=== PATIENT | male | born 1980 | race Caucasian/White ===

== ENCOUNTER 2023-07-25 09:57 | Emergency (ER) | payer OTHER ==
--- OUTSIDE RECORDS SUMMARY | 2023-07-25 10:00 | XMS REPORT | Continuity of Care Document ---
Author Name Unknown Address [address] [facility] [address] thconnect Address [address] [facility] 1 495 [place] [address] Care Team Providers Care Vp Customer Development Name Role Phone BRIAN BAILEY Attending Clinician JOVANA Gracia Attending Clinician BRIAN Jackson Admitting Clinician JOVANA Gracia Admitting Clinician Alejandra card Payers Payer Name Policy Type Policy Number Effective Date Expirati on Date Source 30 [id number] Allergies, Adverse Reactions, Alerts Allergy Name Allergy Type Status Severity Reaction(s) Onset Date Inactive Date Treating Clinician Comments Source SULFA ANTIBIOT ICS Drug Allergy Active U Rash 11-07 01:55: 28 [facility] [place] Drug Allergy Active U Rash 11-07 01:55: 27 [facility]) Encounters Start Date/Time End Date/Time Encounter Type Admission Type Attending Clinicians Care Facility Care Department Encounter ID Source 2020-11-22 20:49:57 Outpatient [facility] [id number] [facility] 2020-08-31 14:20:00 2020-08-31 14:20:00 Outpatient 3 BRIAN BAILEY [facility] [id number] [facility] 2020-06-01 14:42:00 2020-06-01 14:42:00 Outpatient 3 BRIAN BAILEY [facility] [id number] [facility] 2020-02-14 08:02:00 2020-02-14 08:02:00 Outpatient 3 BRIAN BAILEY [facility] [id number] [facility] 2020-01-16 09:01:00 2020-01-16 09:01:00 Outpatient 3 BRIAN BAILEY [facility] [id number] [facility] 2019-12-12 11:49:00 2019-12-12 11:49:00 Outpatient 3 BRIAN BAILEY [facility] [id number] [facility] 2019-11-18 13:29:00 2019-11-18 13:29:00 Outpatient 3 BRIAN BAILEY [facility] O[facility] [id number] [facility] 2019-07-27 11:36:00 2019-07-27 11:36:00 Emergency [facility] [id number] [facility]) Results Test Description Test Time Test Comments Results Result Co mments Source [id number] 15:28:00* Test Item Value Reference Range Interpretation Comme nts SODIUM (test code = NA) 139 MMOL/L 137-145 K+ (test code = KSERUM) 4.0 MMOL/L 3.5-5.1 CHLORIDE (test code = CL) 104 MMOL/L 98-107 CO2 (test code = CO2) 29 MMOL/L 22-30 BUN (test code = BUN) 17 MG/DL 9-20 CREA (test code = CREA) 1.0 MG/DL 0.8-1.5 GLUCOSE (test code = GLUCOSE) 100 MG/DL 70-99 H Fasting glucos e normal <100 MG/DL- [employer] recommendation CALCIUM (test code = CABLOOD) 9.2 MG/DL 8.4-10.2 TOTPROT (test code = TOTPROT) 6.4 G/DL 6.3-8.2 ALBUMIN (test code = ALBSERUM) 4.0 G/DL 3.5-5.0 BILITOT (test code = BILITOT) 0.4 MG/DL 0.2-1.3 AST (test code = AST) 31 U/L 15-46 PHOSALK (test code = PHOSALK) 89 U/L 38-126 ALTV (test code = ALTV) 32 U/L 13-69 GFR (test code = GFR) 88 mL/min/1.73m2 A GFR of >90 mL/min/1.73m2 is considered normal. The GFR calculation on patients over 70 years of age is not validated by the correspondence transcriber and may not represent the patients true renal function. [id number] 15:44:00* Test Item Value Reference Range Interpretation Comme nts SODIUM (test code = NA) 136 MMOL/L 137-145 L K+ (test code = KSERUM) 4.1 MMOL/L 3.5-5.1 CHLORIDE (test code = CL) 102 MMOL/L 98-107 CO2 (test code = CO2) 29 MMOL/L 22-30 BUN (test code = BUN) 18 MG/DL 9-20 CREA (test code = CREA) 1.0 MG/DL 0.8-1.5 GLUCOSE (test code = GLUCOSE) 117 MG/DL 70-99 H Fasting glucos e normal <100 MG/DL- [employer] recommendation CALCIUM (test code = CABLOOD) 9.4 MG/DL 8.4-10.2 TOTPROT (test code = TOTPROT) 6.7 G/DL 6.3-8.2 ALBUMIN (test code = ALBSERUM) 4.2 G/DL 3.5-5.0 BILITOT (test code = BILITOT) 0.4 MG/DL 0.2-1.3 AST (test code = AST) 34 U/L 15-46 PHOSALK (test code = PHOSALK) 85 U/L 38-126 ALTV (test code = ALTV) 40 U/L 13-69 GFR (test code = GFR) 88 mL/min/1.73m2 A GFR of >90 mL/min/1.73m2 is considered normal. The GFR calculation on patients over 70 years of age is not validated by the correspondence transcriber and may not represent the patients true renal function. [id number] 15:19:00* Test Item Value Reference Range Interpretation Comme nts WBC (test code = WBC) 4.8 K/UL 3.5-10.9 RBC (test code = RBC) 4.91 M/UL 4.3-5.7 HGB (test code = HGB) 15.4 G/DL 13.0-17.9 HCT (test code = HCT) 46.1 % 38-52 MCV (test code = MCV) 93.9 FL 80-98 MCH (test code = MCH) 31.4 PG 28-32 MCHC (test code = MCHC) 33.4 G/DL 32.5-36.5 RDW (test code = RDW) 12.6 % 11.5-14.5 PLT (test code = PLT) 204 K/UL 150-450 MPV (test code = MPV) 10.0 FL 7.4-10.4 MANDIFF (test code = MANDIFF) NO SCAN (test code = SCAN) NO NEUT% (test code = NEUT%) 45.6 % 40-75 LYMPH% (test code = LYMPH%) 42.4 % 24-44 MONO% (test code = MONO%) 8.1 % 0-13 EOS% (test code = EOS%) 3.1 % 0-4 BASO % (test code = BASO%) 0.6 % 0-2 IG (test code = IG) 0 % 0-1 IG% (test code = IG%) 0.2 % 0-1 IG% = Metamyeloc ytes, Myelocytes, and Promyelocytes. (Immature neutrophils not including "bands".) > 3% IG indicates risk of sepsis NRBC% (test code = NRBC%) 0 /100 WBC ABS NEUT (test code = NEUT) 2.2 K/UL 1.2-7.2 TESTOSTERONE [id number] 11:25:00* Test Item Value Reference Range Interpretation Comme nts TESTOSTERONE, SERUM (test code = TESTOSTO) >2160 Normal Ma les (aged 20-49 yrs) 132-813 ng/dL Normal Males (aged >50 yrs) 71.8-623 ng/dL Females with normal menstrual cycles 5.71-77 ng/dL TESTOSTERONE [id number] 10:30:00* Test Item Value Reference Range Interpretation Comme nts TESTOSTERONE, SERUM (test code = TESTOSTO) 1090 Normal Ma les (aged 20-49 yrs) 132-813 ng/dL Normal Males (aged >50 yrs) 71.8-623 ng/dL Females with normal menstrual cycles 5.71-77 ng/dL TESTOSTERONE [id number] 13:34:00* Test Item Value Reference Range Interpretation Comme nts TESTOSTERONE, SERUM (test code = TESTOSTO) 348 Normal Ma les (aged 20-49 yrs) 132-813 ng/dL Normal Males (aged >50 yrs) 71.8-623 ng/dL Females with normal menstrual cycles 5.71-77 ng/dL [id number] 15:13:00* Test Item Value Reference Range Interpretation Comme nts SODIUM (test code = NA) 140 MMOL/L 137-145 K+ (test code = KSERUM) 4.0 MMOL/L 3.5-5.1 CHLORIDE (test code = CL) 99 MMOL/L 98-107 CO2 (test code = CO2) 34 MMOL/L 22-30 H BUN (test code = BUN) 22 MG/DL 9-20 H CREA (test code = CREA) 1.1 MG/DL 0.8-1.5 GLUCOSE (test code = GLUCOSE) 78 MG/DL 70-99 Fasting glucos e normal <100 MG/DL- [employer] recommendation CALCIUM (test code = CABLOOD) 9.8 MG/DL 8.4-10.2 TOTPROT (test code = TOTPROT) 6.8 G/DL 6.3-8.2 ALBUMIN (test code = ALBSERUM) 4.5 G/DL 3.5-5.0 BILITOT (test code = BILITOT) 0.3 MG/DL 0.2-1.3 AST (test code = AST) 34 U/L 15-46 PHOSALK (test code = PHOSALK) 83 U/L 38-126 ALTV (test code = ALTV) 30 U/L 13-69 GFR (test code = GFR) 79 mL/min/1.73m2 A GFR of >90 mL/min/1.73m2 is considered normal. TESTOSTERONE [id number] 14:50:00* Test Item Value Reference Range Interpretation Comme nts TESTOSTERONE, SERUM (test code = TESTOSTO) 2110 Normal Ma les (aged 20-49 yrs) 132-813 ng/dL Normal Males (aged >50 yrs) 71.8-623 ng/dL Females with normal menstrual cycles 5.71-77 ng/dL [id number] 13:47:00* Test Item Value Reference Range Interpretation Comme nts WBC (test code = WBC) 6.4 K/UL 3.5-10.9 RBC (test code = RBC) 5.34 M/UL 4.3-5.7 HGB (test code = HGB) 16.2 G/DL 13.0-17.9 HCT (test code = HCT) 49.4 % 38-52 MCV (test code = MCV) 92.5 FL 80-98 MCH (test code = MCH) 30.3 PG 28-32 MCHC (test code = MCHC) 32.8 G/DL 32.5-36.5 RDW (test code = RDW) 12.2 % 11.5-14.5 PLT (test code = PLT) 189 K/UL 150-450 MPV (test code = MPV) 9.5 FL 7.4-10.4 MANDIFF (test code = MANDIFF) NO SCAN (test code = SCAN) NO NEUT% (test code = NEUT%) 51.6 % 40-75 LYMPH% (test code = LYMPH%) 37.0 % 24-44 MONO% (test code = MONO%) 7.9 % 0-13 EOS% (test code = EOS%) 3.0 % 0-4 BASO % (test code = BASO%) 0.3 % 0-2 IG (test code = IG) 0 % 0-1 IG% (test code = IG%) 0.2 % 0-1 IG% = Metamyeloc ytes, Myelocytes, and Promyelocytes. (Immature neutrophils not including "bands".) > 3% IG indicates risk of sepsis NRBC% (test code = NRBC%) 0 /100 WBC ABS NEUT (test code = NEUT) 3.3 K/UL 1.2-7.2
[2023-07-25] MEDS ORDERED: dexAMETHasone 10 MG/ML VIAL ONE (10:54)
[2023-07-25] MEDS ORDERED: NA CHLORIDE 0.9% 1,000 ML ONE (10:55)
[2023-07-25 11:03] LABS: Absolute Eosinophils 0.2 K/uL (0-0.5); Absolute Lymphocytes (CBC) 1.5 K/uL (0.7-4.9); Absolute Monocytes 0.4 K/uL (0.1-1.3); Absolute Neutrophil 5.3 K/uL (1.8-8.0); Basophils % 0.3 % (0-1.3); Eosinophils % 2.5 % (0-4.4); Hematocrit 39.9 % (39.6-49.0); Hemoglobin 13.6 g/dL (13.6-17.9); Lymphocytes % 19.9 % (15.3-44.8); MCH 31.3 pg (27.0-35.0); MPV 7.7 fL (7.6-11.3); Monocytes % 5.2 % (3.3-12.3); Neutrophils % 72.1 % (41.7-73.7); Platelets 226 thou/uL (152-406); RBC Red Blood Cell Count 4.34 M/uL (4.33-5.43); Red Cell Distribution Width 12.8 % (12.1-15.2)
[2023-07-25 11:13] LABS: SARS-CoV-2 Antigen CONTROL BLUE LINE VIS/BG OK; SARS-CoV-2 Antigen Rapid Res Negative (Negative)
[2023-07-25 11:15] LABS: Anion Gap 7.9 mEq/L (5.0-15.0); Potassium 3.9 mEq/L (3.5-5.1)
--- NOTE | 2023-07-25 12:11 | RAD REPORT ---
EXAM DESCRIPTION: CT - Soft Tissue Neck W/Contr - 07/25/2023 11:52 am CLINICAL HISTORY: Neck pain with sore throat. Difficulty swallowing COMPARISON: None. TECHNIQUE: Computed axial tomography of the neck was obtained. 50 cc Isovue 300 was administered in travenously. Coronal and sagittal reconstruction was performed. All CT scans are performed using dose optimization technique as appropriate and may include automated exposure control or mA/KV adjustment according to patient size. FINDINGS: 12 millimeter stone within Limestone's duct Right submandibular gland is enlarged with increased density Left submandibular gland unremarkable The pharynx, tongue base, larynx and subglottic trachea appear unremarkable No significant lymphadenopathy is seen No fluid within the sinuses/mastoids IMPRESSION: 12 millimeter stone within Chela's duct results in right submandibular sialadenitis
--- NOTE | 2023-07-25 12:15 | ER ---
Nurse's Notes [facility] Name: Marine De La Cruz Age: 42 yrs Sex: Male : 1980 Arrival Date: 07/25/2023 Time: 09:57 Bed 6 Private MD: Diagnosis: Submandibular Sialadenitis Presentation: 07/24 10:33 Chief complaint: Patient states: Swelling under tongue and to R side of throat x 3-4 ph days, also reports difficulty swallowing, denies fever, N/V. Coronavirus screen: Vaccine status: Patient reports being unvaccinated. Ebola Screen: No symptoms or risks identified at this time. Initial Sepsis Screen: Does the patient meet any 2 criteria? No. Patient's initial sepsis screen is negative. Does the patient have a suspected source of infection? No. Patient's initial sepsis screen is negative. Risk Assessment: Do you want to hurt yourself or someone else? Patient reports no desire to harm self or others. Onset of symptoms was July 25, 2023. 10:33 Method Of Arrival: Ambulatory ph 10:33 Acuity: BIANKA 3 ph Historical: - Allergies: 10:34 PENICILLINS; ph 10:34 Sulfa (Sulfonamide Antibiotics); ph - PMHx: 10:34 Hypercholesterolemia; ph - Immunization history:: Adult Immunizations unknown. - Infectious Disease History:: Denies. - Social history:: Smoking status: Patient denies any tobacco usage or history of. Screenin:17 [facility] ED Fall Risk Assessment (Adult) History of falling in the last 3 months, as6 including since admission No falls in past 3 months (0 pts) Confusion or Disorientation No (0 pts) Intoxicated or Sedated No (0 pts) Impaired Gait No (0 pts) Mobility Assist Device Used No (0 pt) Altered Elimination No (0 pt) Score/Fall Risk Level 0 - 2 = Low Risk Oriented to surroundings, Maintained a safe environment, Educated pt \T\ family on fall prevention, incl call for assistance when getting out of bed, Assessed \T\ reinforced patient's understanding of fall precautions. Abuse screen: Denies threats or abuse. Denies injuries from another. Nutritional screening: No deficits noted. Tuberculosis screening: No symptoms or risk factors identified. Assessment: 11:18 General: Appears in no apparent distress. Behavior is calm, cooperative. Pain: as6 Complains of pain in neck. Respiratory: Airway is patent Trachea midline Respiratory effort is even, unlabored, Respiratory pattern is regular, symmetrical. EENT: Derm: nodular noted to right side of neck. Vital Signs: 10:33 BP 136 / 92; Pulse 67; Resp 18; Temp 97.7; Pulse Ox 100% on R/A; Weight 80.74 kg; ph Height 6 ft. 0 in. ; 11:16 BP 111 / 73; Pulse 49; Resp 16; Pulse Ox 100% ; as6 12:25 BP 114 / 72; Pulse 50; Resp 16; Pulse Ox 100% ; as6 10:33 Body Mass Index 24.14 (80.74 kg, 182.88 cm) ph ED Course: 09:59 Patient arrived in ED. mr 09:59 Taty Jefferson FNP is PHCP. jh7 09:59 Sabino Leyva MD is Attending Physician. jh7 10:27 Miguelito Hassan, LALITA is Primary Nurse. as6 10:34 Triage completed. ph 10:35 Arm band placed on Patient placed in an exam room. ph 10:54 Strep Sent. as6 10:54 Flu Sent. as6 10:54 SARS RAPID Sent. as6 10:54 CBC with Diff Sent. as6 10:54 BMP Sent. as6 10:55 Inserted saline lock: 20 gauge in left antecubital area, using aseptic technique. Blood jr12 collected. 11:16 Bed in low position. Call light in reach. Client placed on continuous cardiac and pulse as6 oximetry monitoring. NIBP monitoring applied. Warm blanket given. 11:54 CT Soft Tissue Neck W/contr In Process Unspecified. EDMS 12:25 Provided Education on: abx rx. as6 12:25 No provider procedures requiring assistance completed. IV discontinued, intact, as6 bleeding controlled, No redness/swelling at site. Pressure dressing applied. Administered Medications: 10:10 Not Given (Physician Discretion): dexamethasone 10 mg IM once [facility] 10:58 Drug: NS 0.9% IV 1000 ml IV at 1 bolus Per protocol; 1000 mL bolus Route: IV; Rate: 1 as6 bolus; Site: left antecubital; 12:26 Follow up: Response: No adverse reaction; IV Status: Completed infusion; IV Intake: as6 1000ml 10:58 Drug: Decadron - Dexamethasone IVP 10 mg IVP once Route: IVP; Site: left antecubital; as6 12:26 Follow up: Response: No adverse reaction as6 Medication: 11:17 VIS not applicable for this client. as6 Intake: 12:26 IV: 1000ml; Total: 1000ml. as6 Outcome: 12:15 Discharge ordered by . jh7 12:26 Discharged to home ambulatory, as6 12:26 Condition: stable 12:26 Discharge instructions given to patient, Instructed on discharge instructions, follow up and referral plans. medication usage, Demonstrated understanding of instructions, follow-up care, medications, Prescriptions given X 2, 12:26 Patient left the ED. as6 Signatures: Dispatcher [employer] EDMS Xi Cain, Reg Reg mr Ambreen Story, RN RN Miguelito Jean-Baptiste, LALITA RN as6 Taty Jefferson, PEER COUNSELOR PEER COUNSELOR jh7 Noris Brewer 12
--- NOTE | 2023-07-25 12:15 | EDPHYS ---
Physician Documentation [facility] Name: Marine De La Cruz Age: 42 yrs Sex: Male : 1980 Arrival Date: 07/25/2023 Time: 09:57 Bed 6 Private MD: ED Physician Sabino Leyva HPI: 07/24 09:59 This 42 yrs old Male presents to ER via Unassigned with complaints of Sore Throat. jh7 09:59 42-year-old male presents to the ER complaining of sore throat, neck swelling, and jh7 difficulty swallowing for the past 3 days. He reports that he is barely able to swallow liquids. He states that he has a history of high cholesterol and had a physical and labs done over a week ago. He reports that he is now having difficulty talking due to pain and swelling under his tongue on the floor of the mouth. Denies fever, inability to move neck, cough, runny nose, chest pain, shortness of breath, or any other symptoms at this time.. Historical: - Allergies: 10:34 PENICILLINS; ph 10:34 Sulfa (Sulfonamide Antibiotics); ph - PMHx: 10:34 Hypercholesterolemia; ph - Immunization history:: Adult Immunizations unknown. - Infectious Disease History:: Denies. - Social history:: Smoking status: Patient denies any tobacco usage or history of. ROS: 09:59 Constitutional: Per HPI jh7 Exam: 09:59 Constitutional: This is a well developed, well nourished patient who is awake, alert, jh7 and in no acute distress. Cardiovascular: Regular rate and rhythm with a normal S1 and S2. No gallops, murmurs, or rubs. Normal PMI, no JVD. No pulse deficits. Respiratory: Lungs have equal breath sounds bilaterally, clear to auscultation and percussion. No rales, rhonchi or wheezes noted. No increased work of breathing, no retractions or nasal flaring. Abdomen/GI: Soft, non-tender, with normal bowel sounds. No distension or tympany. No guarding or rebound. No evidence of tenderness throughout. Back: No spinal tenderness. No costovertebral tenderness. Full range of motion. Skin: Warm, dry with normal turgor. Normal color with no rashes, no lesions, and no evidence of cellulitis. MS/ Extremity: Pulses equal, no cyanosis. Neurovascular intact. Full, normal range of motion. Neuro: Awake and alert, GCS 15, oriented to person, place, time, and situation. Motor strength 5/5 in all extremities. Sensory grossly intact. Normal gait. 09:59 ENT: Dental exam: cellulitis, that is mild, dental caries, that is moderate, Mild erythema with swelling and a few scattered vesicles noted to the floor of the mouth, 09:59 Neck: External neck: swelling, that is mild, of the right submandibular area, tenderness, that is mild, of the right submandibular area, ROM/movement: is normal, Lymph nodes: lymphadenopathy is appreciated, submandibular nodes, Vital Signs: 10:33 BP 136 / 92; Pulse 67; Resp 18; Temp 97.7; Pulse Ox 100% on R/A; Weight 80.74 kg; ph Height 6 ft. 0 in. ; 11:16 BP 111 / 73; Pulse 49; Resp 16; Pulse Ox 100% ; as6 12:25 BP 114 / 72; Pulse 50; Resp 16; Pulse Ox 100% ; as6 10:33 Body Mass Index 24.14 (80.74 kg, 182.88 cm) ph MDM: 09:59 Patient medically screened. [facility] 12:15 Differential diagnosis: Channing's angina, strep pharyngitis, retropharyngeal abscess, jh7 viral pharyngitis, salivary gland infection, salivary gland stone. Data reviewed: vital signs, nurses notes, lab test result(s), radiologic studies, CT scan. I considered the following discharge prescriptions or medication management in the emergency department Medications were administered in the Emergency Department. See MAR. Counseling: I had a detailed discussion with the patient and/or guardian regarding the historical points, exam findings, and any diagnostic results supporting the discharge/admit diagnosis, the need for outpatient follow up, an ENT specialist, to return to the emergency department if symptoms worsen or persist or if there are any questions or concerns that arise at home. Response to treatment: the patient's symptoms have markedly improved after treatment. Special discussion: Advise sucking hard sugar-free candies, warm compresses, and NSAIDs. Start antibiotics if symptoms or not improving within the next 48 hours.. 07/24 10:09 Order name: Strep [facility] 07/24 10:09 Order name: Flu; Complete Time: 11:20 [facility] 07/24 10:09 Order name: SARS RAPID; Complete Time: 11:20 [facility] 07/24 10:11 Order name: CBC with Diff; Complete Time: 11:20 [facility] 07/24 10:11 Order name: BMP; Complete Time: 11:20 [facility] 07/24 11:17 Order name: Throat Culture [facility] 07/24 10:11 Order name: CT Soft Tissue Neck W/contr; Complete Time: 12:12 [facility] 07/24 10:10 Order name: IV Start; Complete Time: 10:54 [facility] Administered Medications: 10:10 Not Given (Physician Discretion): dexamethasone 10 mg IM once [facility] 10:58 Drug: NS 0.9% IV 1000 ml IV at 1 bolus Per protocol; 1000 mL bolus Route: IV; Rate: 1 as6 bolus; Site: left antecubital; 12:26 Follow up: Response: No adverse reaction; IV Status: Completed infusion; IV Intake: as6 1000ml 10:58 Drug: Decadron - Dexamethasone IVP 10 mg IVP once Route: IVP; Site: left antecubital; as6 12:26 Follow up: Response: No adverse reaction as6 Disposition Summary: 07/25/23 12:15 Discharge Ordered Notes: Location: Home [facility] Problem: new [facility] Symptoms: have improved [facility] Condition: Stable [facility] Diagnosis - Submandibular Sialadenitis [facility] Followup: [facility] - With: Private Physician - When: 2 - 3 days - Reason: Recheck today's complaints Discharge Instructions: - Discharge Summary Sheet [facility] - Salivary Gland Infection [facility] - Salivary Stone [facility] Forms: - Medication Reconciliation Form [facility] - Antibiotic Education [facility] - Patient Portal Instructions [facility] - Leadership Thank You Letter [facility] Prescriptions: - Clindamycin HCl 300 mg Oral Capsule - take 1 capsule ORAL route every 6 hours for 10 days; 40 capsule; Refills: 0, [facility] Product Selection Permitted - Ibuprofen 800 mg Oral Tablet - take 1 tablet ORAL route every 8 hours As needed take with food; 30 tablet; [facility] Refills: 0, Product Selection Permitted Addendum: 07/28/2023 14:10 I was immediately available for consultation during this patient's visit. I did not e c2 personally see the patient or discuss the patient with the SNEHA. . Signatures: Dispatcher [employer] EDMS Ambreen Story, RN RN ph Miguelito Hassan, LALITA RN as6 Taty Jefferson, POOL FINISHER POOL FINISHER jh7 Sabino Leyva MD MD ec2 Corrections: (The following items were deleted from the chart) 07/24 10:11 10:11 CBC+H.LAB.BRZ ordered. EDMS EDMS 10: 10:11 BASIC METABOLIC PANEL+C.LAB.BRZ ordered. EDMS EDMS 10: 10:11 Soft Tissue Neck W/Contr+CT.RAD.BRZ ordered. EDMS EDMS
[2023-07-25 12:35] VITALS: BP 114/72; TEMP 97.7; O2SAT 100
== END 2023-07-25 12:26 | disposition home or self-care (01) ==
LOC: ER 09:57
DX: K11.20 Sialoadenitis, unspecified (principal); Z11.52 Encounter for screening for COVID-19
CPT/HCPCS: 96361; 87070; 85025; 80048; 36415; 87081; 87804 ×2; 70491; 96374; 99284; 87811; Q9967; J1100; J7030

== ENCOUNTER 2024-02-18 19:27 | Emergency (ER) | payer BC, OTHER ==
--- OUTSIDE RECORDS SUMMARY | 2024-02-18 19:32 | XMS REPORT | Continuity of Care Document ---
Author Name Unknown Address [address] [facility] [address] [facility] Address [address] [facility] 1 [address] [place] [address] Care Team Providers Care Slat Basket Maker Name Role Phone BRIAN BAILEY Attending Clinician JOVANA Gracia Attending Clinician BRIAN Jackson Admitting Clinician JOVANA Gracia Admitting Clinician Alejandra card Payers Payer Name Policy Type Policy Number Effective Date Expirati on Date Source 30 [id number] Allergies, Adverse Reactions, Alerts Allergy Name Allergy Type Status Severity Reaction(s) Onset Date Inactive Date Treating Clinician Comments Source SULFA ANTIBIOT ICS Drug Allergy Active U Rash 11-07 01:55: [facility] [place] Drug Allergy Active U Rash 11-07 01:55: 27 [facility] Encounters Start Date/Time End Date/Time Encounter Type Admission Type Attending Clinicians Care Facility Care Department Encounter ID Source 2020-11-22 20:49:57 Outpatient [facility] [id number] [facility] 2020-08-31 14:20:00 2020-08-31 14:20:00 Outpatient 3 BRIAN BAILEY [facility] [id number] [facility]) 2020-06-01 14:42:00 2020-06-01 14:42:00 Outpatient 3 BRIAN BAILEY [facility] [id number] [facility] 2020-02-14 08:02:00 2020-02-14 08:02:00 Outpatient 3 BRIAN BAILEY [facility] [id number] [facility] 2020-01-16 09:01:00 2020-01-16 09:01:00 Outpatient 3 BRIAN BAILEY [facility] [id number] [facility] 2019-12-12 11:49:00 2019-12-12 11:49:00 Outpatient 3 BRIAN BAILEY [facility] [id number] [facility] 2019-11-18 13:29:00 2019-11-18 13:29:00 [facility] [id number] [facility] 2019-07-27 11:36:00 2019-07-27 11:36:00 [id number] [facility] Results Test Description Test Time Test Comments Results Result Co mments Source [id number] 15:28:00* Test Item Value Reference Range Interpretation [...] H Fasting glucos e normal <100 MG/DL- [employer] recommendation CALCIUM (test code = [...] of age is not validated by the travel guide and may not represent the patients true renal function. [id number] 15:44:00* Test Item Value Reference Range Interpretation [...] H Fasting glucos e normal <100 MG/DL- [employer] [employer] recommendation CALCIUM (test code = [...] of age is not validated by the travel guide and may not represent the patients true renal function. [id number] 15:19:00* Test Item Value Reference Range Interpretation [...] code = NEUT) 2.2 K/UL 1.2-7.2 TESTOSTERONE [id number] 11:25:00* Test Item Value Reference Range Interpretation Comme nts TESTOSTERONE, SERUM (test code = TESTOSTO) >2160 Normal Ma les (aged 20-49 yrs) 132-813 ng/dL Normal Males (aged >50 yrs) 71.8-623 ng/dL Females with normal menstrual cycles 5.71-77 ng/dL TESTOSTERONE [id number] 10:30:00* Test Item Value Reference Range Interpretation Comme nts TESTOSTERONE, SERUM (test code = TESTOSTO) 1090 Normal Ma les (aged 20-49 yrs) 132-813 ng/dL Normal Males (aged >50 yrs) 71.8-623 ng/dL Females with normal menstrual cycles 5.71-77 ng/dL TESTOSTERONE [id number] 13:34:00* Test Item Value Reference Range Interpretation Comme nts TESTOSTERONE, SERUM (test code = TESTOSTO) 348 Normal Ma les (aged 20-49 yrs) 132-813 ng/dL Normal Males (aged >50 yrs) 71.8-623 ng/dL Females with normal menstrual cycles 5.71-77 ng/dL [id number] 15:13:00* Test Item Value Reference Range Interpretation [...] 70-99 Fasting glucos e normal <100 MG/DL- [employer] [employer] recommendation CALCIUM (test code = [...] of >90 mL/min/1.73m2 is considered normal. TESTOSTERONE [id number] 14:50:00* Test Item Value Reference Range Interpretation Comme nts TESTOSTERONE, SERUM (test code = TESTOSTO) 2110 Normal Ma les (aged 20-49 yrs) 132-813 ng/dL Normal Males (aged >50 yrs) 71.8-623 ng/dL Females with normal menstrual cycles 5.71-77 ng/dL [id number] 13:47:00* Test Item Value Reference Range Interpretation [...]
[2024-02-18 20:56] LABS: Absolute Eosinophils 0.2 K/uL (0-0.5); Absolute Lymphocytes (CBC) 3.5 K/uL (0.7-4.9); Absolute Monocytes 0.5 K/uL (0.1-1.3); Absolute Neutrophil 3.2 K/uL (1.8-8.0); Basophils % 0.4 % (0-1.3); Eosinophils % 3.1 % (0-4.4); Hematocrit 40.6 % (39.6-49.0); Hemoglobin 13.7 g/dL (13.6-17.9); Lymphocytes % 46.6 % (15.3-44.8); MCH 30.9 pg (27.0-35.0); MCHC 33.6 g/dL (32.0-36.0); MCV 91.8 fL (80-100); MPV 7.9 fL (7.6-11.3); Monocytes % 7.2 % (3.3-12.3); Neutrophils % 42.7 % (41.7-73.7); Nucleated Red Blood Cells % 0.1 % (0-0); Platelets 238 thou/uL (152-406); RBC Red Blood Cell Count 4.42 M/uL (4.33-5.43); Red Cell Distribution Width 13.1 % (12.1-15.2)
[2024-02-18 21:12] LABS: ALT/SGPT 36 U/L (16-61); AST/SGOT 19 U/L (15-37); Albumin 3.8 g/dL (3.4-5.0); Albumin/Globulin Ratio 1.2 (1.1-1.8); Alkaline Phosphatase 114 U/L (45-117); Anion Gap 9.1 mEq/L (5.0-15.0); BUN Blood Urea Nitrogen 19 mg/dL (7-18); Bicarbonate 28 mEq/L (21-32); Bilirubin Total 0.4 mg/dL (0.2-1.0); Globulin 3.3 g/dL (2.3-3.5); Glomerular Filtration Rate 93 ml/min (=/>90); Glucose Level 91 mg/dL (74-106); Magnesium 2.3 mg/dL (1.6-2.4); NT PRO-BNP 9 pg/mL (<125); Potassium 4.1 mEq/L (3.5-5.1); Protein, Total 7.1 g/dL (6.4-8.2); Sodium Level 139 mEq/L (136-145)
[2024-02-18 21:14] LABS: PT Prothrombin Time 12.1 SECONDS (9.4-12.5); Protime INR 1.08
[2024-02-18 21:15] LABS: Bilirubin Direct < 0.2 mg/dL (0-0.2); Bilirubin Indirect, Calculated 0.2 mg/dL (0.2-0.8); Troponin High Sensitivity < 3.0 pg/mL (<58.9)
--- NOTE | 2024-02-18 21:22 | RAD REPORT ---
EXAMINATION: ONE VIEW CHEST XR CLINICAL INDICATION: dizziness TECHNIQUE: Frontal chest projection is submitted. Examination is limited by patient positioning and t echnique. COMPARISON: No prior exam. FINDINGS: The lungs are well inflated and clear. The heart is upper limit of normal in size. No displaced fract ures identified. IMPRESSION: No acute intrathoracic abnormalities.
--- NOTE | 2024-02-18 22:03 | ER ---
Nurse's Notes [facility] Name: Marine De La Cruz Age: 43 yrs Sex: Male : 1980 Arrival Date: 02/18/2024 Time: 19:27 Bed 12 Private MD: Diagnosis: Weakness;Left Chest Wall Tenderness Presentation: 02/17 19:38 Chief complaint: Patient states: pain and swelling under left arm the last 2 days, vc1 heating pad makes it go away. Feel weak, nauseous and have a headache. Coronavirus screen: Client denies travel out of the [place] in the last 14 days. At this time, the client does not indicate any symptoms associated with coronavirus-19. Ebola Screen: Patient negative for fever greater than or equal to 101.5 degrees Fahrenheit, and additional compatible Ebola Virus Disease symptoms Patient denies exposure to infectious person. Patient denies travel to an Ebola-affected area in the 21 days before illness onset. No symptoms or risks identified at this time. Initial Sepsis Screen: Does the patient meet any 2 criteria? No. Patient's initial sepsis screen is negative. Does the patient have a suspected source of infection? No. Patient's initial sepsis screen is negative. Risk Assessment: Do you want to hurt yourself or someone else? Patient reports no desire to harm self or others. Onset of symptoms was February 16, 2024. Care prior to arrival: None. 19:38 Method Of Arrival: Ambulatory vc1 19:38 Acuity: BIANKA 3 vc1 Historical: - Allergies: 19:40 PENICILLINS; vc1 19:40 Sulfa (Sulfonamide Antibiotics); vc1 - Home Meds: 19:40 None [Active]; vc1 - PMHx: 19:40 Hypercholesterolemia; vc1 - PSHx: 19:40 None; vc1 - Immunization history:: Client reports having NOT received the Covid vaccine. Flu vaccine is not up to date. - Infectious Disease History:: Denies. - Social history:: Smoking status: Patient/guardian denies using tobacco, Stopped _ months ago 6. Screenin:41 [facility] ED Fall Risk Assessment (Adult) History of falling in the last 3 months, vc1 including since admission No falls in past 3 months (0 pts) Confusion or Disorientation No (0 pts) Intoxicated or Sedated No (0 pts) Impaired Gait No (0 pts) Mobility Assist Device Used No (0 pt) Altered Elimination No (0 pt) Score/Fall Risk Level 0 - 2 = Low Risk Oriented to surroundings, Maintained a safe environment, Educated pt \T\ family on fall prevention, incl call for assistance when getting out of bed. Abuse screen: Denies threats or abuse. Nutritional screening: No deficits noted. Tuberculosis screening: No symptoms or risk factors identified. Assessment: 20:45 General: Appears in no apparent distress. comfortable, uncomfortable, Behavior is calm, jb4 cooperative, appropriate for age. Pain: Complains of pain in left lateral anterior chest Pain does not radiate. Pain currently is 0 out of 10 on a pain scale. Neuro: Level of Consciousness is awake, alert, obeys commands, Oriented to person, place, time, situation. Cardiovascular: Patient's skin is warm and dry. Respiratory: Airway is patent Respiratory effort is even, unlabored, Respiratory pattern is regular, symmetrical. Derm: Skin is intact, Skin is pink, warm \T\ dry. Musculoskeletal: Circulation, motion, and sensation intact. Range of motion: intact in all extremities. 21:56 Reassessment: Patient appears in no apparent distress at this time. Patient and/or jb4 family updated on plan of care and expected duration. Pain level reassessed. Patient is alert, oriented x 3, equal unlabored respirations, skin warm/dry/pink. Vital Signs: 19:38 BP 136 / 89; Pulse 68; Resp 14; Temp 98.4; Pulse Ox 99% ; Weight 81.65 kg; Height 5 ft. vc1 9 in. ; Pain 0/10; 21:00 BP 122 / 76; Pulse 52; Resp 16; Pulse Ox 99% on R/A; jb4 21:45 BP 118 / 81; Pulse 50; Resp 18; Pulse Ox 100% ; jb4 19:38 Body Mass Index 26.58 (81.65 kg, 175.26 cm) vc1 19:38 Pain Scale: Adult vc1 ED Course: 19:32 Patient arrived in ED. jj6 19:40 Triage completed. vc1 19:40 Arm band placed on right wrist. vc1 19:50 [facility] cp 19:50 Crystal Galeana MD is Attending Physician. cp 20:45 Patient has correct armband on for positive identification. Bed in low position. Call jb4 light in reach. Side rails up X 1. Provided Education on: discharge instructions.. 20:45 No provider procedures requiring assistance completed. jb4 20:46 Inserted saline lock: 20 gauge in left antecubital area, using aseptic technique. Blood ha1 collected. Flushed with 10 mL NS. 21:02 XRAY Chest (1 view) In Process Unspecified. EDMS 22:18 IV discontinued, intact, bleeding controlled, No redness/swelling at site. Pressure jb4 dressing applied. Administered Medications: No medications were administered Medication: 19:41 VIS not applicable for this client. vc1 Outcome: 22:03 Discharge ordered by . cp 22:18 Discharged to home ambulatory, with family, jb 22:18 Condition: stable 22:18 Discharge instructions given to patient, Instructed on discharge instructions, follow up and referral plans. Demonstrated understanding of instructions, follow-up care, 22:19 Patient left the ED. jb4 Signatures: Dispatcher [employer] EDMN Jason Almanza PA PA cp Bryson, James, RN RN jb4 Taty [id number] Jenni Vazquez RN RN vc1 Saba Nix RN RN ha1
--- NOTE | 2024-02-18 22:03 | EDPHYS ---
Physician Documentation [facility] Name: Marien De La Cruz Age: 43 yrs Sex: Male : 1980 Arrival Date: 02/18/2024 Time: 19:27 Bed 12 Private MD: ED Physician Crystal Galeana HPI: 02/17 20:10 This 43 yrs old Male presents to ER via Ambulatory with complaints of General Weakness, cp PAIN/SWELLING AROUND ARM PIT AREA, High Blood Pressure. 20:10 Patient presents to ED with c/o general weakness and swelling/tenderness to left cp anterior chest times 2 days. Patient reports elevated blood pressure but denies history of diagnosis of htn.. Historical: - Allergies: 19:40 PENICILLINS; vc1 19:40 Sulfa (Sulfonamide Antibiotics); vc1 - Home Meds: 19:40 None [Active]; vc1 - PMHx: 19:40 Hypercholesterolemia; vc1 - PSHx: 19:40 None; vc1 - Immunization history:: Client reports having NOT received the Covid vaccine. Flu vaccine is not up to date. - Infectious Disease History:: Denies. - Social history:: Smoking status: Patient/guardian denies using tobacco, Stopped _ months ago 6. ROS: 20:15 Constitutional: history per hpi cp 20:15 Constitutional: Negative for body aches, chills, fever, poor PO intake, weight loss, cp 20:15 ENT: Negative for drainage from ear(s), ear pain, sore throat, difficulty swallowing, difficulty handling secretions, 20:15 Cardiovascular: Positive for swelling left side of chest, Negative for edema, palpitations, 20:15 Respiratory: Negative for cough, shortness of breath, wheezing, 20:15 Abdomen/GI: Negative for abdominal pain, vomiting, diarrhea, constipation, black/tarry stool, rectal bleeding, 20:15 : Negative for urinary symptoms, 20:15 Neuro: Positive for weakness, Negative for altered mental status, dizziness, headache, 20:15 All other systems are negative, Exam: 20:15 Constitutional: The patient appears in no acute distress, alert, awake, comfortable, cp non-diaphoretic, non-toxic, well developed, well nourished, 20:15 Head/Face: Normocephalic, atraumatic. cp 20:15 Eyes: Periorbital structures: appear normal, Conjunctiva: normal, no exudate, no injection, Sclera: no appreciated abnormality, Lids and lashes: appear normal, bilaterally, 20:15 ENT: External ear(s): are unremarkable, Nose: is normal, Mouth: Lips: moist, Oral mucosa: moist, Posterior pharynx: Airway: no evidence of obstruction, patent, 20:15 Neck: ROM/movement: is normal, is supple, without pain, no range of motions limitations, 20:15 Chest/axilla: Inspection: normal, no obvious asymmetrical swelling noted, Palpation: crepitus, is not appreciated, tenderness, is not appreciated, Axilla: lymphadenopathy, is not appreciated, in the left axilla, 20:15 Cardiovascular: Rate: normal, Rhythm: regular, Edema: is not appreciated, JVD: is not appreciated, 20:15 Respiratory: the patient does not display signs of respiratory distress, Respirations: normal, no use of accessory muscles, no retractions, labored breathing, is not present, Breath sounds: are clear throughout, no decreased breath sounds, no stridor, no wheezing, 20:15 Abdomen/GI: Inspection: abdomen appears normal, Palpation: abdomen is soft and non-tender, in all quadrants, 20:15 Back: pain, is absent, ROM is normal, 20:15 Skin: cellulitis, is not appreciated, no rash present. 20:15 Neuro: Orientation: to person, place \T\ time. Mentation: is normal, Motor: moves all fours, strength is normal, Sensation: is normal, 20:47 ECG was reviewed by the Attending Physician. cp Vital Signs: 19:38 BP 136 / 89; Pulse 68; Resp 14; Temp 98.4; Pulse Ox 99% ; Weight 81.65 kg; Height 5 ft. vc1 9 in. ; Pain 0/10; 21:00 BP 122 / 76; Pulse 52; Resp 16; Pulse Ox 99% on R/A; jb4 21:45 BP 118 / 81; Pulse 50; Resp 18; Pulse Ox 100% ; jb4 19:38 Body Mass Index 26.58 (81.65 kg, 175.26 cm) vc1 19:38 Pain Scale: Adult vc1 MDM: 19:50 Medical Screening Exam initiated cp 20:30 Differential diagnosis: viral Infection, bacterial infection, bronchitis, pneumonia cp acute MD, cardiac arrythmia. 22:02 Data reviewed: vital signs, nurses notes, lab test result(s), EKG, radiologic studies, cp plain films, and as a result, I will discharge patient. 22:02 Counseling: I had a detailed discussion with the patient and/or guardian regarding the cp historical points, exam findings, and any diagnostic results supporting the discharge/admit diagnosis, lab results, radiology results, the need for outpatient follow up, a family practitioner, to return to the emergency department if symptoms worsen or persist or if there are any questions or concerns that arise at home. 02/17 20:10 Order name: Basic Metabolic Panel; Complete Time: 21:23 cp 02/17 21:23 Interpretation: Normal except: BUN 19. cp 02/17 20:10 Order name: CBC with Diff; Complete Time: 21:23 cp 02/17 21:23 Interpretation: Normal except: LYM% 46.6. cp 02/17 20:10 Order name: LFT's; Complete Time: 21:23 cp 02/17 20:10 Order name: Magnesium; Complete Time: 21:23 cp 02/17 20:10 Order name: NT PRO-BNP; Complete Time: 21:23 cp 02/17 20:10 Order name: PT-INR; Complete Time: 21:23 cp 02/17 20:10 Order name: Troponin HS; Complete Time: 21:23 cp 02/17 21:23 Interpretation: Reviewed. cp 02/17 20:10 Order name: Ptt, Activated; Complete Time: 21:23 cp 02/17 20:10 Order name: XRAY Chest (1 view); Complete Time: 21:35 cp 02/17 21:36 Interpretation: Report review. cp 02/17 20:10 Order name: EKG; Complete Time: 20:11 cp 02/17 20:10 Order name: Cardiac monitoring; Complete Time: 20:45 cp 02/17 20:10 Order name: EKG - Nurse/Tech; Complete Time: 20:45 cp 02/17 20:10 Order name: IV Saline Lock; Complete Time: 20:45 cp 02/17 20:10 Order name: Labs collected and sent; Complete Time: 20:45 cp 02/17 20:10 Order name: O2 Per Protocol; Complete Time: 20:45 cp 02/17 20:10 Order name: O2 Sat Monitoring; Complete Time: 20:45 cp EC:47 Rate is 48 beats/min. Rhythm is regular. ID interval is normal. QRS interval is cp prolonged at 102 msec. QT interval is normal. T waves are Inverted in lead aVR. Interpreted by me. Reviewed by me. Administered Medications: No medications were administered Disposition Summary: 02/18/24 22:03 Discharge Ordered Notes: Location: Home cp Problem: new cp Symptoms: have improved cp Condition: Stable cp Diagnosis - Weakness cp - Left Chest Wall Tenderness cp Followup: cp - With: Private Physician - When: As needed - Reason: Recheck today's complaints Discharge Instructions: - Discharge Summary Sheet cp - Weakness cp Forms: - Medication Reconciliation Form cp - Antibiotic Education cp - Prescription Opioid Use cp - Patient Portal Instructions cp - Leadership Thank You Letter cp Signatures: Dispatcher [employer] EDMS Jason Almanza PA PA cp Calcote, Vanessa RN RN vc1 Corrections: (The following items were deleted from the chart) 22:18 21:10 This 43 yrs old Male presents to ER via Ambulatory with complaints of General cp Weakness, PAIN/SWELLING AROUND ARM PIT AREA, High Blood Pressure. cp
[2024-02-18 22:46] VITALS: TEMP 98.4
[2024-02-18 23:02] VITALS: BP 118/81; O2SAT 100
--- NOTE | 2024-02-22 10:53 | EKG ---
Test Date: 2024-02-18 Test Time: 20:43:56 Loom Changeover Operator: AF MEASUREMENT RESULTS: Intervals: Rate: 48 UT: 164 QRSD: 102 QT: 436 QTc: 389 Fowler: P: 62 UT: 164 QRS: 82 T: 65 INTERPRETIVE STATEMENTS: Marked sinus bradycardia Abnormal ECG No previous ECG available for comparison Electronically Signed On 02-22-24 10:50:25 ENGINE SPECIALIST by Pedro Atwood
== END 2024-02-18 22:19 | disposition home or self-care (01) ==
LOC: ER 19:27
DX: R53.1 Weakness (principal); R07.89 Other chest pain; E78.00 Pure hypercholesterolemia, unspecified; Z28.310 Unvaccinated for COVID-19
CPT/HCPCS: 36415; 71045; 80048; 80076; 83735; 83880; 84484; 85025; 85610; 85730; 93005; 99284